=== PATIENT | male | born 1990 | race American Indian/Alaskan Native ===

== ENCOUNTER 2023-12-23 04:24 | Inpatient (IN) | payer BC, OTHER ==
[2023-12-23 04:54] LABS: APPEARANCE,URINE CLEAR (Clear); BILIRUBIN,URINE NEGATIVE (Negative); COLOR,URINE YELLOW (Yellow); GLUCOSE,URINE 2+ (Negative); KETONES,URINE 3+ (Negative); LEUKOCYTE ESTERASE,URINE NEGATIVE (Negative); NITRITE,URINE NEGATIVE (Negative); OCCULT BLOOD,URINE TRACE-INTACT (Negative); PROTEIN,URINE 1+ (Negative)
[2023-12-23] MEDS: Morphine 4 MG/ML Syringe IVPUSH ONE ×3 (05:05→08:13)
[2023-12-23] MEDS: Ondansetron 4 MG/2 ML SDV IVPUSH ONE (05:05)
[2023-12-23] MEDS: Sodium Chloride 0.9% 10 ML Syringe FLUSH ONE (05:06)
[2023-12-23 05:11] LABS: BACTERIA,URINE RARE /hpf (FEW); EPITHELIAL CELLS,URINE 0-5 /hpf (0-5); MUCUS,URINE NOT SEEN /hpf (FEW); RBC,URINE 0-5 /hpf (0-5); WBC,URINE 0-5 /hpf (0-5)
[2023-12-23] MEDS: Sodium Chloride 0.9% 10 ML Syringe FLUSH PRN (05:21)
[2023-12-23] MEDS: Iopamidol 612 MG/ML 100 ML Bottle IVPUSH ONE (05:21)
[2023-12-23] MEDS: Iopamidol 612 MG/ML 30 ML SDV IVPUSH ONE (05:21)
[2023-12-23 05:28] LABS: A/G RATIO 0.6 (1-2); ALANINE AMINOTRANSFERASE,ALT 23 U/L (16-63); ALBUMIN 2.6 g/dl (3.4-5.0); ALKALINE PHOSPHATASE 191 U/L (46-116); ANION GAP 18.4 (5-15); ASPARTATE AMNIOTRANSFERASE,AST 12 U/L (15-37); BASOPHILS PERCENT AUTO 0.2 % (0.0-1.0); BILIRUBIN TOTAL 0.8 mg/dL (0.2-1.0); BLOOD UREA NITROGEN,BUN 6 mg/dL (7-18); BUN/CREATININE RATIO 6.7 (14-18); CALCIUM 8.5 mg/dL (8.5-10.1); CARBON DIOXIDE,CO2 22 mEq/L (21-32); CHLORIDE,CL 93 mEq/L (98-107); CREATININE 0.9 mg/dL (0.7-1.3); EST CRCL DRUG DOSING (CG) 126.94 mL/min; ESTIMATED GFR 115 mL/min (>60); GLUCOSE RANDOM 370 mg/dL (70-99); HEMATOCRIT 36.4 % (42.0-52.0); HEMOGLOBIN 12.6 gm/dl (14.0-18.0); IMMATURE GRAN ABSOLUTE AUTO 0.17 K/mm3 (0.00-0.05); IMMATURE GRAN PERCENT AUTO 0.9 % (0.0-0.4); LIPASE 16 U/L (16-77); LYMPHOCYTES ABSOLUTE AUTO 0.5 K/mm3 (1.0-4.8); LYMPHOCYTES PERCENT AUTO 2.7 % (24.0-44.0); MAGNESIUM 1.9 mg/dL (1.8-2.4); MEAN CORPUSCULAR HEMOGLOBIN 28.6 pg (28.0-32.0); MEAN CORPUSCULAR HGB CONC 34.6 g/dl (32.0-36.0); MEAN CORPUSCULAR VOLUME 82.7 fl (83.0-99.0); MONOCYTES PERCENT AUTO 5.1 % (0.0-8.0); NEUTROPHILS ABSOLUTE AUTO 17.4 K/mm3 (1.8-7.7); NEUTROPHILS PERCENT AUTO 91.1 % (41.0-71.0); PLATELET COUNT,PLT 339 K/mm3 (150-400); POTASSIUM,K 4.4 mEq/L (3.5-5.1); PROTEIN TOTAL,TP 7.1 g/dl (6.4-8.2); SODIUM,NA 129 mEq/L (136-145); WHITE BLOOD CELL COUNT,WBC 19.11 K/mm3 (3.9-11.3)
[2023-12-23 05:32] LABS: HEMOGLOBIN A1C 13.3 %
[2023-12-23] MEDS: Piperacillin/Tazobactam 4.5 GM in Sodium Chloride 0.9% 100 ML IV ONE (05:47)
[2023-12-23 05:57] LABS: C-REACTIVE PROTEIN > 25.00 mg/dL (<0.30)
[2023-12-23 05:59] LABS: CORONAVIRUS COVID-19 NAA NEGATIVE (NEGATIVE); INFLUENZA A NAA NEGATIVE (NEGATIVE); RESPIRATORY SYNCYTIAL VIR NAA NEGATIVE (NEGATIVE)
[2023-12-23 06:24] LABS: SLIDE REVIEW ABNORMAL SMEAR
[2023-12-23] MEDS ORDERED: Sodium Chloride 0.9% 1,000 ML IV ONE (08:03)
[2023-12-23] MEDS: Sodium Chloride 0.9% 1,000 ML IV ONE ×2 (08:12→09:33)
[2023-12-23] MEDS ORDERED: Ondansetron 4 MG/2 ML SDV ONE (08:19)
[2023-12-23] MEDS ORDERED: Ketorolac 30 MG/ML SDV ONE (08:19)
[2023-12-23] MEDS ORDERED: Rocuronium 50 MG/5 ML Vial ONE ×3 (08:19→12:44)
[2023-12-23] MEDS ORDERED: fentaNYL 250 MCG/5 ML SDV ONE (08:20)
[2023-12-23] MEDS ORDERED: Lidocaine 1% 4 ML ONE (09:11)
[2023-12-23] MEDS ORDERED: ceFAZolin 2 GM Vial ONE ×2 (09:11→12:11)
[2023-12-23] MEDS ORDERED: Propofol 200 MG/20 ML SDV ONE ×4 (09:11)
[2023-12-23] MEDS ORDERED: Lidocaine 1% PF 2 ML SDV ONE ×2 (09:11)
[2023-12-23] MEDS ORDERED: dexmedeTOMIDine HCl 200 MCG/2 ML SDV ONE (09:11)
[2023-12-23] MEDS ORDERED: Midazolam 1 MG/ML 2 ML SDV ONE (09:11)
[2023-12-23] MEDS ORDERED: Lidocaine 1% 2 ML ONE (09:29)
[2023-12-23] MEDS ORDERED: Sodium Chloride 0.9% 1,000 ML ONE (09:29)
[2023-12-23] MEDS ORDERED: HYDROmorphone 0.5 MG/0.5 ML Syringe ONE ×3 (09:30→11:22)
[2023-12-23] MEDS ORDERED: Lidocaine 1% 20 ML MDV ONE (10:16)
[2023-12-23] MEDS ORDERED: Phenylephrine 1% 10 MG/ML SDV ONE (10:40)
[2023-12-23] MEDS: Lidocaine 1% 20 ML MDV ONE (11:23)
[2023-12-23] MEDS ORDERED: Ondansetron 4 MG/2 ML SDV IVPUSH PRN ×2 (11:26→15:58)
[2023-12-23] MEDS ORDERED: fentaNYL 100 MCG/2 ML SDV IVPUSH PRN (11:26)
[2023-12-23] MEDS ORDERED: Sugammadex Sodium 200 MG/2 ML VIAL IV ONE (12:02)
[2023-12-23] MEDS ORDERED: fentaNYL 100 MCG/2 ML SDV ONE (12:39)
[2023-12-23] MEDS ORDERED: Metoprolol Tartrate 5 MG/5 ML SDV ONE (12:54)
[2023-12-23] MEDS: HYDROmorphone 0.5 MG/0.5 ML Syringe IVPUSH PRN ×2 (15:47→21:34)
[2023-12-23] MEDS ORDERED: Naloxone 0.4 MG/ML SDV IVPUSH PRN (15:58)
[2023-12-23] MEDS ORDERED: HYDROmorphone/Normal Saline 6 MG/30 ML PCA Vial IV PRN (15:58)
[2023-12-23] MEDS ORDERED: Piperacillin/Tazobactam 4.5 GM in Sodium Chloride 0.9% 100 ML IV SCH (16:15)
[2023-12-23 16:33] LABS: BASOPHILS PERCENT AUTO 0.2 % (0.0-1.0); HEMATOCRIT 34.9 % (42.0-52.0); HEMOGLOBIN 11.5 gm/dl (14.0-18.0); IMMATURE GRAN ABSOLUTE AUTO 0.04 K/mm3 (0.00-0.05); IMMATURE GRAN PERCENT AUTO 0.3 % (0.0-0.4); LYMPHOCYTES ABSOLUTE AUTO 0.7 K/mm3 (1.0-4.8); LYMPHOCYTES PERCENT AUTO 5.1 % (24.0-44.0); MEAN CORPUSCULAR HEMOGLOBIN 28.3 pg (28.0-32.0); MEAN CORPUSCULAR VOLUME 85.7 fl (83.0-99.0); MEAN PLATELET VOLUME 9.8 fl (9.4-12.4); MONOCYTES PERCENT AUTO 7.3 % (0.0-8.0); NEUTROPHILS ABSOLUTE AUTO 11.5 K/mm3 (1.8-7.7); NEUTROPHILS PERCENT AUTO 87.1 % (41.0-71.0); PLATELET COUNT,PLT 320 K/mm3 (150-400); RED BLOOD CELL COUNT 4.07 M/mm3 (4.52-5.90); WHITE BLOOD CELL COUNT,WBC 13.18 K/mm3 (3.9-11.3)
[2023-12-23 16:50] LABS: ANION GAP 15.4 (5-15); BUN/CREATININE RATIO 6.9 (14-18); CALCIUM 7.7 mg/dL (8.5-10.1); CREATININE 1.3 mg/dL (0.7-1.3); EST CRCL DRUG DOSING (CG) 87.88 mL/min; MAGNESIUM 1.6 mg/dL (1.8-2.4); PHOSPHORUS 3.4 mg/dL (2.6-4.7); POTASSIUM,K 4.4 mEq/L (3.5-5.1)
[2023-12-23] MEDS: Piperacillin/Tazobactam 4.5 GM in Sodium Chloride 0.9% 100 ML IV SCH (16:54)
[2023-12-23 16:58] LABS: ANION GAP 15.4 (5-15); POTASSIUM,K 4.4 mEq/L (3.5-5.1)
[2023-12-23] MEDS: Ketorolac 15 MG/ML SDV IVPUSH SCH (17:06)
[2023-12-23] MEDS: Insulin Regular, Human 100 Units/ML 3 ML Vial IV ONE ×2 (17:40→17:41)
[2023-12-23] MEDS: Insulin Regular, Human 100 Units/ML 10 ML Vial IV ONE (17:40)
[2023-12-23] MEDS: Sodium Chloride 0.9% 1,000 ML IV SCH (17:42)
[2023-12-23] MEDS: Magnesium Sulfate/Water 2 GM in Premix Bag 1 BAG IV ONE (17:59)
[2023-12-23] MEDS: Magnesium Sulfate/Water 4 GM in Premix Bag 1 BAG IV ONE (21:18)
[2023-12-23] MEDS: Insulin Lispro 100 Unit/ML 3 ML KwikPen SUBCUT SCH (21:49)
[2023-12-23] MEDS: diphenhydrAMINE 50 MG/ML SDV IVPUSH PRN (22:55)
[2023-12-24 09:13] LABS: BASOPHILS PERCENT AUTO 0.3 % (0.0-1.0); HEMATOCRIT 34.9 % (42.0-52.0); HEMOGLOBIN 11.1 gm/dl (14.0-18.0); IMMATURE GRAN ABSOLUTE AUTO 0.08 K/mm3 (0.00-0.05); IMMATURE GRAN PERCENT AUTO 0.5 % (0.0-0.4); LYMPHOCYTES ABSOLUTE AUTO 0.9 K/mm3 (1.0-4.8); LYMPHOCYTES PERCENT AUTO 5.5 % (24.0-44.0); MEAN CORPUSCULAR HEMOGLOBIN 28.2 pg (28.0-32.0); MEAN CORPUSCULAR HGB CONC 31.8 g/dl (32.0-36.0); MEAN PLATELET VOLUME 9.8 fl (9.4-12.4); MONOCYTES PERCENT AUTO 5.9 % (0.0-8.0); NEUTROPHILS PERCENT AUTO 87.8 % (41.0-71.0); RED BLOOD CELL COUNT 3.93 M/mm3 (4.52-5.90); WHITE BLOOD CELL COUNT,WBC 15.99 K/mm3 (3.9-11.3)
[2023-12-24 09:33] LABS: MEAN CORPUSCULAR VOLUME 88.8 fl (83.0-99.0)
[2023-12-24 09:34] LABS: PLATELET COUNT,PLT 396 K/mm3 (150-400)
[2023-12-24 09:41] LABS: ANION GAP 20.7 (5-15); CALCIUM 8.2 mg/dL (8.5-10.1); CREATININE 0.8 mg/dL (0.7-1.3); EST CRCL DRUG DOSING (CG) 134.34 mL/min; MAGNESIUM 2.7 mg/dL (1.8-2.4); PHOSPHORUS 2.8 mg/dL (2.6-4.7); POTASSIUM,K 4.7 mEq/L (3.5-5.1)
[2023-12-24] MEDS: Lactated Ringers 1,000 ML IV SCH (10:45)
[2023-12-24] MEDS ORDERED: Lactated Ringers 1,000 ML IV ONE ×3 (11:00→14:39)
[2023-12-24] MEDS ORDERED: Sodium Chloride 0.9% 1,000 ML IV ONE (12:30)
[2023-12-24] MEDS: Enoxaparin 40 MG/0.4 ML Syringe SUBCUT SCH (14:37)
[2023-12-24] MEDS: Insulin Glargine,Human Rec. Analog 100 Units/ML 3 ML Pen SUBCUT SCH (20:27)
[2023-12-24] MEDS: Sodium Chloride 0.9% 250 ML ONE (21:27)
[2023-12-25 04:53] LABS: BASOPHILS PERCENT AUTO 0.2 % (0.0-1.0); EOSINOPHILS ABSOLUTE AUTO 0.1 K/mm3 (0.0-0.4); EOSINOPHILS PERCENT AUTO 0.5 % (0.0-6.0); HEMATOCRIT 31.4 % (42.0-52.0); IMMATURE GRAN PERCENT AUTO 0.6 % (0.0-0.4); LYMPHOCYTES PERCENT AUTO 6.4 % (24.0-44.0); MEAN CORPUSCULAR HEMOGLOBIN 28.1 pg (28.0-32.0); MEAN CORPUSCULAR HGB CONC 31.8 g/dl (32.0-36.0); MEAN CORPUSCULAR VOLUME 88.2 fl (83.0-99.0); MEAN PLATELET VOLUME 9.6 fl (9.4-12.4); MONOCYTES ABSOLUTE AUTO 0.9 K/mm3 (0.0-0.8); MONOCYTES PERCENT AUTO 5.4 % (0.0-8.0); NEUTROPHILS ABSOLUTE AUTO 13.8 K/mm3 (1.8-7.7); NEUTROPHILS PERCENT AUTO 86.9 % (41.0-71.0); PLATELET COUNT,PLT 392 K/mm3 (150-400); RED BLOOD CELL COUNT 3.56 M/mm3 (4.52-5.90); WHITE BLOOD CELL COUNT,WBC 15.86 K/mm3 (3.9-11.3)
[2023-12-25 05:23] LABS: BUN/CREATININE RATIO 17.1 (14-18); CALCIUM 8.1 mg/dL (8.5-10.1); CREATININE 0.7 mg/dL (0.7-1.3); EST CRCL DRUG DOSING (CG) 153.53 mL/min; PHOSPHORUS 1.8 mg/dL (2.6-4.7)
[2023-12-25] MEDS: Sodium Chloride 0.9% 100 ML ONE (20:10)
[2023-12-26 04:54] LABS: BASOPHILS PERCENT AUTO 0.2 % (0.0-1.0); EOSINOPHILS ABSOLUTE AUTO 0.1 K/mm3 (0.0-0.4); EOSINOPHILS PERCENT AUTO 0.9 % (0.0-6.0); HEMATOCRIT 30.2 % (42.0-52.0); HEMOGLOBIN 9.7 gm/dl (14.0-18.0); IMMATURE GRAN ABSOLUTE AUTO 0.07 K/mm3 (0.00-0.05); IMMATURE GRAN PERCENT AUTO 0.5 % (0.0-0.4); LYMPHOCYTES ABSOLUTE AUTO 1.1 K/mm3 (1.0-4.8); LYMPHOCYTES PERCENT AUTO 7.6 % (24.0-44.0); MEAN CORPUSCULAR HGB CONC 32.1 g/dl (32.0-36.0); MEAN PLATELET VOLUME 9.4 fl (9.4-12.4); MONOCYTES ABSOLUTE AUTO 0.8 K/mm3 (0.0-0.8); MONOCYTES PERCENT AUTO 5.7 % (0.0-8.0); NEUTROPHILS PERCENT AUTO 85.1 % (41.0-71.0); PLATELET COUNT,PLT 422 K/mm3 (150-400); RED BLOOD CELL COUNT 3.47 M/mm3 (4.52-5.90); WHITE BLOOD CELL COUNT,WBC 14.09 K/mm3 (3.9-11.3)
[2023-12-26 05:20] LABS: ANION GAP 15.7 (5-15); BUN/CREATININE RATIO 21.7 (14-18); CALCIUM 8.5 mg/dL (8.5-10.1); CREATININE 0.6 mg/dL (0.7-1.3); EST CRCL DRUG DOSING (CG) 179.12 mL/min; MAGNESIUM 1.8 mg/dL (1.8-2.4); PHOSPHORUS 2.2 mg/dL (2.6-4.7); POTASSIUM,K 3.7 mEq/L (3.5-5.1)
[2023-12-26] MEDS: Potassium Phosphates 15 MMOLE in Sodium Chloride 0.9% 250 ML IV ONE (08:30)
[2023-12-26] MEDS: Benzocaine/Cetylpyridinium/Menthol Lozenge MUCMEM PRN (11:20)
[2023-12-26] MEDS ORDERED: Labetalol 100 MG/20 ML MDV IVPUSH PRN ×2 (20:20→20:22)
[2023-12-27 04:48] LABS: BASOPHILS PERCENT AUTO 0.4 % (0.0-1.0); EOSINOPHILS ABSOLUTE AUTO 0.2 K/mm3 (0.0-0.4); HEMATOCRIT 29.3 % (42.0-52.0); HEMOGLOBIN 9.5 gm/dl (14.0-18.0); IMMATURE GRAN PERCENT AUTO 0.9 % (0.0-0.4); LYMPHOCYTES ABSOLUTE AUTO 1.4 K/mm3 (1.0-4.8); LYMPHOCYTES PERCENT AUTO 13.1 % (24.0-44.0); MEAN CORPUSCULAR HEMOGLOBIN 27.8 pg (28.0-32.0); MEAN CORPUSCULAR HGB CONC 32.4 g/dl (32.0-36.0); MEAN CORPUSCULAR VOLUME 85.7 fl (83.0-99.0); MEAN PLATELET VOLUME 9.1 fl (9.4-12.4); MONOCYTES ABSOLUTE AUTO 0.8 K/mm3 (0.0-0.8); MONOCYTES PERCENT AUTO 7.3 % (0.0-8.0); NEUTROPHILS ABSOLUTE AUTO 8.1 K/mm3 (1.8-7.7); NEUTROPHILS PERCENT AUTO 76.3 % (41.0-71.0); PLATELET COUNT,PLT 452 K/mm3 (150-400); RED BLOOD CELL COUNT 3.42 M/mm3 (4.52-5.90); WHITE BLOOD CELL COUNT,WBC 10.61 K/mm3 (3.9-11.3)
[2023-12-27 05:08] LABS: ANION GAP 14.2 (5-15); CALCIUM 8.1 mg/dL (8.5-10.1); CREATININE 0.5 mg/dL (0.7-1.3); EST CRCL DRUG DOSING (CG) 214.94 mL/min; MAGNESIUM 1.6 mg/dL (1.8-2.4); POTASSIUM,K 3.2 mEq/L (3.5-5.1)
[2023-12-27] MEDS: Potassium Chloride 10 MEQ in Premix Bag 1 BAG IV SCH (10:14)
[2023-12-27] MEDS: Magnesium Sulfate/Water 4 GM in Premix Bag 1 BAG IV ONE (10:14)
[2023-12-27] MEDS: Acetaminophen 325 MG Tab PO SCH (10:28)
[2023-12-27] MEDS: traMADol 50 MG Tab PO PRN (12:37)
[2023-12-27] MEDS: Ibuprofen 600 MG Tab PO SCH (12:37)
[2023-12-27] MEDS: Lactated Ringers 1,000 ML IV SCH (14:00)
[2023-12-27] MEDS: Gabapentin 300 MG Cap PO SCH (14:06)
[2023-12-27] MEDS: diphenhydrAMINE 25 MG Cap PO PRN (23:00)
[2023-12-28 05:37] LABS: BASOPHILS PERCENT AUTO 0.3 % (0.0-1.0); EOSINOPHILS ABSOLUTE AUTO 0.3 K/mm3 (0.0-0.4); EOSINOPHILS PERCENT AUTO 2.7 % (0.0-6.0); HEMATOCRIT 31.6 % (42.0-52.0); HEMOGLOBIN 10.2 gm/dl (14.0-18.0); IMMATURE GRAN ABSOLUTE AUTO 0.13 K/mm3 (0.00-0.05); IMMATURE GRAN PERCENT AUTO 1.4 % (0.0-0.4); LYMPHOCYTES ABSOLUTE AUTO 1.2 K/mm3 (1.0-4.8); LYMPHOCYTES PERCENT AUTO 13.5 % (24.0-44.0); MEAN CORPUSCULAR HEMOGLOBIN 28.2 pg (28.0-32.0); MEAN CORPUSCULAR HGB CONC 32.3 g/dl (32.0-36.0); MEAN CORPUSCULAR VOLUME 87.3 fl (83.0-99.0); MEAN PLATELET VOLUME 9.2 fl (9.4-12.4); MONOCYTES ABSOLUTE AUTO 0.7 K/mm3 (0.0-0.8); MONOCYTES PERCENT AUTO 8.1 % (0.0-8.0); NEUTROPHILS ABSOLUTE AUTO 6.7 K/mm3 (1.8-7.7); PLATELET COUNT,PLT 502 K/mm3 (150-400); RED BLOOD CELL COUNT 3.62 M/mm3 (4.52-5.90); WHITE BLOOD CELL COUNT,WBC 9.12 K/mm3 (3.9-11.3)
[2023-12-28 06:24] LABS: ANION GAP 10.2 (5-15); BUN/CREATININE RATIO 6.7 (14-18); CALCIUM 8.2 mg/dL (8.5-10.1); CREATININE 0.6 mg/dL (0.7-1.3); EST CRCL DRUG DOSING (CG) 179.12 mL/min; MAGNESIUM 2.1 mg/dL (1.8-2.4); PHOSPHORUS 3.5 mg/dL (2.6-4.7); POTASSIUM,K 3.2 mEq/L (3.5-5.1)
[2023-12-28] MEDS: Potassium Chloride 20 MEQ Tab.ER PO SCH (09:12)
[2023-12-28] MEDS: Gabapentin 600 MG Tab PO SCH (09:18)
[2023-12-28] MEDS: HYDROmorphone 0.5 MG/0.5 ML Syringe IVPUSH PRN (11:17)
[2023-12-28] MEDS: Insulin Glargine,Human Rec. Analog 100 Units/ML 3 ML Pen SUBCUT ONE (11:20)
[2023-12-28] MEDS: Insulin Glargine,Human Rec. Analog 100 Units/ML 3 ML Pen SUBCUT SCH (21:14)
[2023-12-28] MEDS: diphenhydrAMINE 50 MG Cap PO PRN (22:00)
[2023-12-29 05:49] LABS: ANION GAP 11.3 (5-15); BUN/CREATININE RATIO 8.3 (14-18); CALCIUM 8.3 mg/dL (8.5-10.1); CREATININE 0.6 mg/dL (0.7-1.3); EST CRCL DRUG DOSING (CG) 179.12 mL/min; MAGNESIUM 1.7 mg/dL (1.8-2.4); PHOSPHORUS 4.3 mg/dL (2.6-4.7); POTASSIUM,K 3.3 mEq/L (3.5-5.1)
[2023-12-29 05:50] LABS: BASOPHILS PERCENT AUTO 0.3 % (0.0-1.0); EOSINOPHILS ABSOLUTE AUTO 0.2 K/mm3 (0.0-0.4); HEMATOCRIT 29.7 % (42.0-52.0); HEMOGLOBIN 9.8 gm/dl (14.0-18.0); IMMATURE GRAN ABSOLUTE AUTO 0.12 K/mm3 (0.00-0.05); IMMATURE GRAN PERCENT AUTO 1.2 % (0.0-0.4); LYMPHOCYTES ABSOLUTE AUTO 1.2 K/mm3 (1.0-4.8); LYMPHOCYTES PERCENT AUTO 12.5 % (24.0-44.0); MEAN CORPUSCULAR VOLUME 84.9 fl (83.0-99.0); MONOCYTES ABSOLUTE AUTO 0.7 K/mm3 (0.0-0.8); MONOCYTES PERCENT AUTO 6.8 % (0.0-8.0); NEUTROPHILS ABSOLUTE AUTO 7.6 K/mm3 (1.8-7.7); NEUTROPHILS PERCENT AUTO 77.2 % (41.0-71.0)
[2023-12-29 05:52] LABS: PLATELET COUNT,PLT 603 K/mm3 (150-400)
[2023-12-29] MEDS: Magnesium Sulfate/Water 4 GM in Premix Bag 1 BAG IV ONE (09:15)
[2023-12-29] MEDS: Potassium Chloride 20 MEQ Tab.ER PO SCH (09:45)
[2023-12-29 17:18] VITALS: BP 112/80; PULSE 88
== END 2023-12-29 18:30 | disposition home or self-care (01) | DRG 853 ==
LOC: JD.ED 04:24 → JD.SDS 09:29 → JD.ICU 16:34
PROVIDERS: ADMIT Student in an Organized Health Care Education/Training Program; ATTEND Student in an Organized Health Care Education/Training Program
PROC: 0D1B0ZL Bypass Ileum to Transverse Colon, Open Approach (ICD-10-PCS; 2023-12-23)
PROC: 0DTF0ZZ Resection of Right Large Intestine, Open Approach (ICD-10-PCS; 2023-12-23)
PROC: 0DTJ0ZZ Resection of Appendix, Open Approach (ICD-10-PCS; 2023-12-23)
PROC: 0WJG4ZZ Inspection of Peritoneal Cavity, Percutaneous Endoscopic Approach (ICD-10-PCS; 2023-12-23)
PROC: 0D9670Z Drainage of Stomach with Drainage Device, Via Natural or Artificial Opening (ICD-10-PCS; 2023-12-23)
PROC: 3E03329 Introduction of Other Anti-infective into Peripheral Vein, Percutaneous Approach (ICD-10-PCS; principal; 2023-12-23 10:00)
DX: A40.8 Other streptococcal sepsis (principal); K35.33 Acute appendicitis with perforation, localized peritonitis, and gangrene, with abscess; E10.65 Type 1 diabetes mellitus with hyperglycemia; E10.42 Type 1 diabetes mellitus with diabetic polyneuropathy; E78.00 Pure hypercholesterolemia, unspecified; E83.42 Hypomagnesemia; L40.9 Psoriasis, unspecified; F17.210 Nicotine dependence, cigarettes, uncomplicated; Z79.4 Long term (current) use of insulin; Z79.84 Long term (current) use of oral hypoglycemic drugs; Z53.31 Laparoscopic surgical procedure converted to open procedure; Z79.899 Other long term (current) drug therapy
CPT/HCPCS: 00840; 0241U; 36415; 74177; 74177-26; 80048; 80051; 80053; 81001; 82947; 83036; 83605; 83690; 83735; 84100; 85025; 86140; 86850; 86900; 86901; 87040; 87070; 87075; 87077; 87186; 87205; 97110-GP; 97116-GP; 97161-GP; 97530-GP; 99140; 99222; 99231; 99232; A9270-GY; J0690; J1170; J1200; J1650; J1815; J1815-GY; J1885; J1921; J2250; J2270; J2371; J2405; J2543; J2704; J3010; J3475; J3480; J3490; J7030; J7050; J7120; Q0163; Q9967

== ENCOUNTER 2024-01-03 18:42 | Inpatient (IN) | payer OTHER ==
[2024-01-03] MEDS ORDERED: Sodium Chloride 0.9% 10 ML Syringe FLUSH PRN (19:26)
[2024-01-03 19:51] LABS: BASOPHILS PERCENT AUTO 0.2 % (0.0-1.0); EOSINOPHILS ABSOLUTE AUTO 0.1 K/mm3 (0.0-0.4); EOSINOPHILS PERCENT AUTO 0.6 % (0.0-6.0); HEMATOCRIT 35.8 % (42.0-52.0); HEMOGLOBIN 11.4 gm/dl (14.0-18.0); IMMATURE GRAN ABSOLUTE AUTO 0.07 K/mm3 (0.00-0.05); IMMATURE GRAN PERCENT AUTO 0.5 % (0.0-0.4); LYMPHOCYTES PERCENT AUTO 7.3 % (24.0-44.0); MEAN CORPUSCULAR HEMOGLOBIN 27.9 pg (28.0-32.0); MEAN CORPUSCULAR HGB CONC 31.8 g/dl (32.0-36.0); MEAN CORPUSCULAR VOLUME 87.7 fl (83.0-99.0); MEAN PLATELET VOLUME 8.3 fl (9.4-12.4); MONOCYTES ABSOLUTE AUTO 0.9 K/mm3 (0.0-0.8); MONOCYTES PERCENT AUTO 6.6 % (0.0-8.0); NEUTROPHILS ABSOLUTE AUTO 11.1 K/mm3 (1.8-7.7); NEUTROPHILS PERCENT AUTO 84.8 % (41.0-71.0); RED BLOOD CELL COUNT 4.08 M/mm3 (4.52-5.90); WHITE BLOOD CELL COUNT,WBC 13.07 K/mm3 (3.9-11.3)
[2024-01-03 19:55] LABS: PLATELET COUNT,PLT 1063 K/mm3 (150-400)
[2024-01-03] MEDS: Sodium Chloride 0.9% 1,000 ML IV ONE (19:58)
[2024-01-03] MEDS: Morphine 4 MG/ML Syringe IVPUSH ONE (19:58)
[2024-01-03 20:11] LABS: A/G RATIO 0.4 (1-2); ALBUMIN 2.1 g/dl (3.4-5.0); ANION GAP 11.9 (5-15); BILIRUBIN TOTAL 0.4 mg/dL (0.2-1.0); BUN/CREATININE RATIO 8.6 (14-18); CALCIUM 8.7 mg/dL (8.5-10.1); CREATININE 0.7 mg/dL (0.7-1.3); EST CRCL DRUG DOSING (CG) 153.53 mL/min; POTASSIUM,K 3.9 mEq/L (3.5-5.1); PROTEIN TOTAL,TP 7.8 g/dl (6.4-8.2)
[2024-01-03] MEDS: Sodium Chloride 0.9% 10 ML Syringe FLUSH ONE (20:29)
[2024-01-03] MEDS: Iopamidol 612 MG/ML 100 ML Bottle IVPUSH ONE (20:29)
[2024-01-03] MEDS: HYDROmorphone 1 MG/ML Syringe IVPUSH ONE (20:45)
[2024-01-03] MEDS: Piperacillin/Tazobactam 4.5 GM in Sodium Chloride 0.9% 100 ML IV ONE (21:24)
[2024-01-03] MEDS: Lactated Ringers 1,000 ML IV ONE (21:27)
[2024-01-03] MEDS: HYDROmorphone 0.5 MG/0.5 ML Syringe IVPUSH PRN (21:36)
[2024-01-03] MEDS: Ketorolac 15 MG/ML SDV IVPUSH PRN (22:43)
[2024-01-03] MEDS ORDERED: Naloxone 0.4 MG/ML SDV IVPUSH PRN (23:00)
[2024-01-03] MEDS: Melatonin 3 MG Tab PO PRN (23:08)
[2024-01-03] MEDS: Acetaminophen 325 MG Tab PO ONE (23:08)
[2024-01-03] MEDS: HYDROmorphone 0.5 MG/0.5 ML Syringe IVPUSH ONE (23:10)
[2024-01-04 04:41] LABS: APPEARANCE,URINE CLEAR (Clear); BILIRUBIN,URINE NEGATIVE (Negative); COLOR,URINE YELLOW (Yellow); GLUCOSE,URINE NEGATIVE (Negative); KETONES,URINE TRACE (Negative); LEUKOCYTE ESTERASE,URINE NEGATIVE (Negative); NITRITE,URINE NEGATIVE (Negative); OCCULT BLOOD,URINE NEGATIVE (Negative); PROTEIN,URINE NEGATIVE (Negative); UROBILINOGEN,URINE 0.2 (0.2-1.0)
[2024-01-04] MEDS: Heparin Sodium 5,000 Units/ML Vial SUBCUT SCH (09:56)
[2024-01-04] MEDS: Nicotine 21 MG/24 Hr Patch TRDERM SCH (10:19)
[2024-01-04] MEDS: Lactated Ringers 500 ML IV ONE (10:29)
[2024-01-04] MEDS: Piperacillin/Tazobactam 4.5 GM in Sodium Chloride 0.9% 100 ML IV SCH (10:31)
[2024-01-04] MEDS: Pantoprazole 40 MG Vial IVPUSH SCH (10:41)
[2024-01-04] MEDS: guaiFENesin 600 MG Tab.ER PO SCH (10:41)
[2024-01-04] MEDS: Lactated Ringers 1,000 ML IV SCH (11:07)
[2024-01-04] MEDS: Ondansetron 4 MG Tab.DIS PO PRN (12:48)
[2024-01-04] MEDS: Gabapentin 600 MG Tab PO SCH (15:16)
[2024-01-04] MEDS: Insulin Lispro 100 Unit/ML 3 ML KwikPen SUBCUT SCH (18:29)
[2024-01-05 05:36] LABS: BASOPHILS PERCENT AUTO 0.3 % (0.0-1.0); EOSINOPHILS ABSOLUTE AUTO 0.1 K/mm3 (0.0-0.4); EOSINOPHILS PERCENT AUTO 0.7 % (0.0-6.0); HEMATOCRIT 30.1 % (42.0-52.0); HEMOGLOBIN 9.5 gm/dl (14.0-18.0); IMMATURE GRAN ABSOLUTE AUTO 0.04 K/mm3 (0.00-0.05); IMMATURE GRAN PERCENT AUTO 0.4 % (0.0-0.4); MEAN CORPUSCULAR HEMOGLOBIN 27.6 pg (28.0-32.0); MEAN CORPUSCULAR HGB CONC 31.6 g/dl (32.0-36.0); MEAN CORPUSCULAR VOLUME 87.5 fl (83.0-99.0); MEAN PLATELET VOLUME 8.5 fl (9.4-12.4); MONOCYTES ABSOLUTE AUTO 0.7 K/mm3 (0.0-0.8); MONOCYTES PERCENT AUTO 6.8 % (0.0-8.0); NEUTROPHILS ABSOLUTE AUTO 7.9 K/mm3 (1.8-7.7); NEUTROPHILS PERCENT AUTO 81.8 % (41.0-71.0); RED BLOOD CELL COUNT 3.44 M/mm3 (4.52-5.90); WHITE BLOOD CELL COUNT,WBC 9.68 K/mm3 (3.9-11.3)
[2024-01-05 05:50] LABS: ANION GAP 13.9 (5-15); BUN/CREATININE RATIO 11.7 (14-18); CALCIUM 7.9 mg/dL (8.5-10.1); CREATININE 0.6 mg/dL (0.7-1.3); EST CRCL DRUG DOSING (CG) 179.12 mL/min; MAGNESIUM 1.4 mg/dL (1.8-2.4); PHOSPHORUS 2.8 mg/dL (2.6-4.7); POTASSIUM,K 3.9 mEq/L (3.5-5.1)
[2024-01-05 06:00] LABS: PLATELET COUNT,PLT 875 K/mm3 (150-400)
[2024-01-05 06:05] LABS: SLIDE REVIEW ABNORMAL SMEAR
[2024-01-05] MEDS: Lidocaine 4% 1 each Patch TOP PRN (09:22)
[2024-01-05] MEDS: Magnesium Sulfate/Water Premix 4 GM in Premix Bag 1 BAG IV ONE (10:54)
[2024-01-05] MEDS: Sodium Chloride 0.45% with KCl 1,000 ML IV SCH (10:57)
[2024-01-05] MEDS: Potassium Phosphates 30 MMOLE in Sodium Chloride 0.9% 500 ML IV ONE (12:38)
[2024-01-05] MEDS: Acetaminophen 325 MG Tab PO PRN (22:21)
[2024-01-06 05:56] LABS: BASOPHILS PERCENT AUTO 0.3 % (0.0-1.0); EOSINOPHILS ABSOLUTE AUTO 0.1 K/mm3 (0.0-0.4); EOSINOPHILS PERCENT AUTO 0.7 % (0.0-6.0); HEMATOCRIT 28.2 % (42.0-52.0); HEMOGLOBIN 9.1 gm/dl (14.0-18.0); IMMATURE GRAN ABSOLUTE AUTO 0.03 K/mm3 (0.00-0.05); IMMATURE GRAN PERCENT AUTO 0.3 % (0.0-0.4); MEAN CORPUSCULAR HEMOGLOBIN 27.3 pg (28.0-32.0); MEAN CORPUSCULAR HGB CONC 32.3 g/dl (32.0-36.0); MEAN CORPUSCULAR VOLUME 84.7 fl (83.0-99.0); MEAN PLATELET VOLUME 8.1 fl (9.4-12.4); MONOCYTES ABSOLUTE AUTO 0.8 K/mm3 (0.0-0.8); MONOCYTES PERCENT AUTO 7.7 % (0.0-8.0); NEUTROPHILS ABSOLUTE AUTO 7.8 K/mm3 (1.8-7.7); PLATELET COUNT,PLT 849 K/mm3 (150-400); RED BLOOD CELL COUNT 3.33 M/mm3 (4.52-5.90); WHITE BLOOD CELL COUNT,WBC 9.68 K/mm3 (3.9-11.3)
[2024-01-06 06:17] LABS: SLIDE REVIEW ABNORMAL SMEAR
[2024-01-06 06:18] LABS: ANION GAP 9.2 (5-15); BUN/CREATININE RATIO 3.3 (14-18); CALCIUM 7.8 mg/dL (8.5-10.1); CREATININE 0.6 mg/dL (0.7-1.3); EST CRCL DRUG DOSING (CG) 179.12 mL/min; MAGNESIUM 1.9 mg/dL (1.8-2.4); PHOSPHORUS 2.4 mg/dL (2.6-4.7); POTASSIUM,K 4.2 mEq/L (3.5-5.1)
[2024-01-06] MEDS: Phosphorus #1 250 MG Tab PO SCH (10:04)
[2024-01-06 11:35] VITALS: BP 106/64; PULSE 80
[2024-01-06] MEDS ORDERED: Ketorolac 30 MG/ML SDV IVPUSH PRN (14:00)
== END 2024-01-06 15:47 | disposition home or self-care (01) | DRG 390 ==
LOC: JD.ED 18:42 → JD.ICU 21:09 → JD.MS 01-05 19:27
PROVIDERS: ADMIT Surgery; ATTEND Surgery
PROC: 0D9670Z Drainage of Stomach with Drainage Device, Via Natural or Artificial Opening (ICD-10-PCS; principal; 2024-01-03)
DX: K56.600 Partial intestinal obstruction, unspecified as to cause (principal); L89.152 Pressure ulcer of sacral region, stage 2; E10.40 Type 1 diabetes mellitus with diabetic neuropathy, unspecified; D72.9 Disorder of white blood cells, unspecified; E78.00 Pure hypercholesterolemia, unspecified; F32.A Depression, unspecified; F17.210 Nicotine dependence, cigarettes, uncomplicated; Z79.4 Long term (current) use of insulin; Z93.2 Ileostomy status; Z79.899 Other long term (current) drug therapy
CPT/HCPCS: 36415; 71045; 71045-26; 74018; 74018-26; 74177; 74177-26; 80048; 80053; 81003; 82947; 83605; 83690; 83735; 84100; 85025; 87040; 94761; 96361; 96374; 96375; 99285; 99285-25; A9270-GY; J1170; J1644; J1815; J1885; J2270; J2470; J2543; J3475; J3480; J3490; J7030; J7040; J7120; Q9967

== ENCOUNTER 2024-01-12 17:57 | Emergency (ER) | payer OTHER ==
[2024-01-12 18:54] LABS: HEMATOCRIT 31.6 % (42.0-52.0); HEMOGLOBIN 10.1 gm/dl (14.0-18.0); MEAN CORPUSCULAR HEMOGLOBIN 27.7 pg (28.0-32.0); MEAN CORPUSCULAR VOLUME 86.6 fl (83.0-99.0); MEAN PLATELET VOLUME 8.3 fl (9.4-12.4); PLATELET COUNT,PLT 516 K/mm3 (150-400); RED BLOOD CELL COUNT 3.65 M/mm3 (4.52-5.90); WHITE BLOOD CELL COUNT,WBC 16.91 K/mm3 (3.9-11.3)
[2024-01-12 19:14] LABS: INR 1.06; PROTHROMBIN TIME 11.2 SECONDS (9.7-12.0)
[2024-01-12 19:25] LABS: LACTIC ACID 2.1 mmol/L (0.4-2.0)
[2024-01-12 19:26] LABS: A/G RATIO 0.4 (1-2); ANION GAP 12.8 (5-15); BILIRUBIN TOTAL 0.3 mg/dL (0.2-1.0); BUN/CREATININE RATIO 7.8 (14-18); C-REACTIVE PROTEIN 4.89 mg/dL (<0.30); CALCIUM 8.2 mg/dL (8.5-10.1); CREATININE 0.9 mg/dL (0.7-1.3); EST CRCL DRUG DOSING (CG) 118.29 mL/min; POTASSIUM,K 4.8 mEq/L (3.5-5.1); PROTEIN TOTAL,TP 7.7 g/dl (6.4-8.2)
[2024-01-12 19:55] LABS: BAND PERCENT MAN 0 % (0-10); BASOPHILS PERCENT MAN 0 (0.2-1.2); EOSINOPHILS PERCENT MAN 0 % (0.8-7.0); LYMPHOCYTES % ATYPICAL MANUAL 0 %; LYMPHOCYTES PERCENT MAN 6 % (20-40); MONOCYTES PERCENT MAN 2 % (2-10); PLATELET COUNT ESTIMATE INCREASED
[2024-01-12] MEDS: Sodium Chloride 0.9% 1,000 ML IV ONE ×2 (20:30→21:07)
[2024-01-12] MEDS: Sodium Chloride 0.9% 10 ML Syringe FLUSH PRN (20:31)
[2024-01-12] MEDS: cefTRIAXone 2 GM in Sodium Chloride 0.9% 100 ML IV ONE (20:31)
[2024-01-12 20:51] LABS: CORONAVIRUS COVID-19 NAA NEGATIVE (NEGATIVE); INFLUENZA A NAA NEGATIVE (NEGATIVE); RESPIRATORY SYNCYTIAL VIR NAA NEGATIVE (NEGATIVE)
[2024-01-12] MEDS: Gabapentin 300 MG Cap PO ONE (21:06)
[2024-01-12] MEDS: Sodium Chloride 0.9% 1,000 ML IV SCH (22:53)
[2024-01-12 23:08] LABS: APPEARANCE,URINE CLEAR (Clear); BILIRUBIN,URINE NEGATIVE (Negative); COLOR,URINE YELLOW (Yellow); GLUCOSE,URINE NEGATIVE (Negative); KETONES,URINE NEGATIVE (Negative); LEUKOCYTE ESTERASE,URINE NEGATIVE (Negative); NITRITE,URINE NEGATIVE (Negative); OCCULT BLOOD,URINE NEGATIVE (Negative); PROTEIN,URINE NEGATIVE (Negative); UROBILINOGEN,URINE 0.2 (0.2-1.0)
[2024-01-13 02:38] VITALS: BP 98/66; PULSE 92
== END 2024-01-13 01:41 | disposition home or self-care (01) ==
LOC: JD.ED 17:57
DX: R50.9 Fever, unspecified (principal); E78.00 Pure hypercholesterolemia, unspecified; E10.40 Type 1 diabetes mellitus with diabetic neuropathy, unspecified; Z79.899 Other long term (current) drug therapy; Z79.4 Long term (current) use of insulin
CPT/HCPCS: 0241U; 36415; 71045; 74176; 80053; 81003; 83605; 83690; 85007; 85027; 85610; 86140; 87040; 96361; 96365; 99284; A9270; J0696; J3490; J7030

== ENCOUNTER 2024-02-27 19:30 | Emergency (ER) | payer OTHER ==
[2024-02-27] MEDS ORDERED: Sodium Chloride 0.9% 10 ML Syringe FLUSH PRN (20:15)
[2024-02-27 21:18] LABS: BASOPHILS PERCENT AUTO 0.4 % (0.0-1.0); EOSINOPHILS PERCENT AUTO 0.4 % (0.0-6.0); HEMATOCRIT 31.7 % (42.0-52.0); HEMOGLOBIN 10.7 gm/dl (14.0-18.0); IMMATURE GRAN ABSOLUTE AUTO 0.03 K/mm3 (0.00-0.05); IMMATURE GRAN PERCENT AUTO 0.3 % (0.0-0.4); LYMPHOCYTES ABSOLUTE AUTO 1.8 K/mm3 (1.0-4.8); LYMPHOCYTES PERCENT AUTO 16.3 % (24.0-44.0); MEAN CORPUSCULAR HEMOGLOBIN 27.5 pg (28.0-32.0); MEAN CORPUSCULAR HGB CONC 33.8 g/dl (32.0-36.0); MEAN CORPUSCULAR VOLUME 81.5 fl (83.0-99.0); MEAN PLATELET VOLUME 8.7 fl (9.4-12.4); MONOCYTES ABSOLUTE AUTO 0.6 K/mm3 (0.0-0.8); MONOCYTES PERCENT AUTO 5.8 % (0.0-8.0); NEUTROPHILS ABSOLUTE AUTO 8.5 K/mm3 (1.8-7.7); NEUTROPHILS PERCENT AUTO 76.8 % (41.0-71.0); PLATELET COUNT,PLT 435 K/mm3 (150-400); RED BLOOD CELL COUNT 3.89 M/mm3 (4.52-5.90); WHITE BLOOD CELL COUNT,WBC 11.09 K/mm3 (3.9-11.3)
[2024-02-27 21:51] LABS: A/G RATIO 0.8 (1-2); ALBUMIN 3.2 g/dl (3.4-5.0); ANION GAP 13.9 (5-15); BILIRUBIN TOTAL 0.5 mg/dL (0.2-1.0); BUN/CREATININE RATIO 14.4 (14-18); CALCIUM 8.6 mg/dL (8.5-10.1); CREATININE 0.9 mg/dL (0.7-1.3); EST CRCL DRUG DOSING (CG) 118.29 mL/min; MAGNESIUM 1.6 mg/dL (1.8-2.4); POTASSIUM,K 3.9 mEq/L (3.5-5.1); PROTEIN TOTAL,TP 7.3 g/dl (6.4-8.2)
[2024-02-27 21:53] LABS: LACTIC ACID 1.3 mmol/L (0.4-2.0)
[2024-02-27] MEDS: Diatrizoate Meglumine/Diatrizoate Sodium 37% 120 ML Bottle PO ONE (22:05)
[2024-02-27] MEDS: Iopamidol 612 MG/ML 100 ML Bottle IVPUSH ONE (22:05)
[2024-02-27 22:57] LABS: APPEARANCE,URINE CLEAR (Clear); BILIRUBIN,URINE NEGATIVE (Negative); COLOR,URINE YELLOW (Yellow); GLUCOSE,URINE NEGATIVE (Negative); KETONES,URINE NEGATIVE (Negative); LEUKOCYTE ESTERASE,URINE NEGATIVE (Negative); NITRITE,URINE NEGATIVE (Negative); OCCULT BLOOD,URINE NEGATIVE (Negative); PROTEIN,URINE NEGATIVE (Negative); UROBILINOGEN,URINE 0.2 (0.2-1.0)
[2024-02-27] MEDS: Sodium Chloride 0.9% 10 ML Syringe FLUSH ONE (23:23)
[2024-02-28 09:04] VITALS: BP 99/67; PULSE 93
== END 2024-02-28 08:05 | disposition home or self-care (01) ==
LOC: JD.ED 19:30
DX: K56.41 Fecal impaction (principal); E10.9 Type 1 diabetes mellitus without complications; Z90.49 Acquired absence of other specified parts of digestive tract; Z79.4 Long term (current) use of insulin; Z79.2 Long term (current) use of antibiotics; Z79.899 Other long term (current) drug therapy
CPT/HCPCS: 36415; 74177; 74177-26; 80053; 81003; 83605; 83735; 85025; 99284; J3490; Q9963; Q9967

== ENCOUNTER 2024-03-24 07:09 | Observation (INO) | payer OTHER ==
[~2024-03-24 07:09] MED LIST: Sodium Chloride 0.9% 10 ML Syringe FLUSH PRN
[2024-03-24] MEDS ORDERED: Midazolam 1 MG/ML 2 ML SDV ONE (07:31)
[2024-03-24] MEDS ORDERED: Ketamine 200 MG/20 ML MDV ONE (07:31)
[2024-03-24] MEDS ORDERED: fentaNYL 250 MCG/5 ML SDV ONE (07:31)
[2024-03-24] MEDS ORDERED: Propofol 200 MG/20 ML SDV ONE ×2 (07:31→10:21)
[2024-03-24] MEDS ORDERED: Ondansetron 4 MG/2 ML SDV ONE (07:32)
[2024-03-24] MEDS ORDERED: EPINEPHrine 1 MG/ML SDV ONE (07:32)
[2024-03-24] MEDS ORDERED: Rocuronium 50 MG/5 ML Vial ONE ×2 (07:32→09:19)
[2024-03-24] MEDS ORDERED: Lidocaine 1% 5 ML VIAL ONE (07:32)
[2024-03-24] MEDS ORDERED: ceFAZolin 2 GM Vial ONE (07:34)
[2024-03-24] MEDS: Lactated Ringers 1,000 ML IV SCH ×2 (07:45→14:31)
[2024-03-24] MEDS ORDERED: Lactated Ringers 1,000 ML ONE (08:51)
[2024-03-24] MEDS ORDERED: Ondansetron 4 MG/2 ML SDV IVPUSH PRN (09:10)
[2024-03-24] MEDS ORDERED: fentaNYL 100 MCG/2 ML SDV IVPUSH PRN (09:10)
[2024-03-24] MEDS ORDERED: HYDROmorphone 0.5 MG/0.5 ML Syringe ONE ×3 (09:11→10:18)
[2024-03-24] MEDS: Bupivacaine 0.5% 30 ML SDV ONE (09:27)
[2024-03-24] MEDS ORDERED: Ketorolac 30 MG/ML SDV ONE (10:24)
[2024-03-24] MEDS ORDERED: Sugammadex Sodium 200 MG/2 ML VIAL IV ONE (10:24)
[2024-03-24] MEDS ORDERED: Ibuprofen 600 MG Tab PO PRN ×2 (11:11→16:30)
[2024-03-24] MEDS ORDERED: Ondansetron 4 MG Tab.DIS PO PRN (11:11)
[2024-03-24] MEDS ORDERED: oxyCODONE 5 MG Tab PO PRN ×2 (11:11→11:24)
[2024-03-24] MEDS: HYDROmorphone 0.5 MG/0.5 ML Syringe IVPUSH PRN ×2 (11:34→18:05)
[2024-03-24] MEDS: Sodium Chloride 0.9% 10 ML Syringe FLUSH SCH (19:40)
[2024-03-24] MEDS: oxyCODONE 5 MG Tab PO PRN (20:01)
[2024-03-24] MEDS ORDERED: 50% Dextrose in Water 50 ML Syringe IVPUSH PRN (20:52)
[2024-03-24] MEDS: Melatonin 3 MG Tab PO PRN (21:02)
[2024-03-24] MEDS: Insulin Lispro 100 Unit/ML 3 ML KwikPen SUBCUT SCH (21:03)
[2024-03-24] MEDS: Ibuprofen 600 MG Tab PO PRN (22:51)
[2024-03-25] MEDS: Acetaminophen 325 MG Tab PO PRN (03:25)
[2024-03-25 05:58] LABS: HEMATOCRIT 28.2 % (42.0-52.0); HEMOGLOBIN 9.6 gm/dl (14.0-18.0); MEAN CORPUSCULAR HEMOGLOBIN 28.8 pg (28.0-32.0); MEAN CORPUSCULAR VOLUME 84.7 fl (83.0-99.0); MEAN PLATELET VOLUME 8.6 fl (9.4-12.4); PLATELET COUNT,PLT 304 K/mm3 (150-400); RED BLOOD CELL COUNT 3.33 M/mm3 (4.52-5.90); WHITE BLOOD CELL COUNT,WBC 7.36 K/mm3 (3.9-11.3)
[2024-03-25 06:13] LABS: ANION GAP 12.8 (5-15); BUN/CREATININE RATIO 18.9 (14-18); CALCIUM 8.1 mg/dL (8.5-10.1); CREATININE 0.9 mg/dL (0.7-1.3); EST CRCL DRUG DOSING (CG) 118.29 mL/min; POTASSIUM,K 3.8 mEq/L (3.5-5.1)
[2024-03-25 09:57] VITALS: BP 115/75; PULSE 84
== END 2024-03-25 10:47 | disposition home or self-care (01) ==
LOC: JD.SDS 07:09 → JD.MS 11:11
PROVIDERS: ADMIT Surgery; ATTEND Surgery
DX: Z43.2 Encounter for attention to ileostomy (principal); T85.828A Fibrosis due to other internal prosthetic devices, implants and grafts, initial encounter; L83 Acanthosis nigricans; K66.0 Peritoneal adhesions (postprocedural) (postinfection); E78.5 Hyperlipidemia, unspecified; E10.49 Type 1 diabetes mellitus with other diabetic neurological complication; E10.65 Type 1 diabetes mellitus with hyperglycemia; Z98.890 Other specified postprocedural states; Z79.4 Long term (current) use of insulin; Z79.899 Other long term (current) drug therapy
CPT/HCPCS: 36415; 44620; 80048; 82947; 85027; 94761; A9270; J0171; J0665; J0690; J1171; J1885; J2250; J2405; J2704; J3010; J3490; J7120; 00790